=== PATIENT | female | born 1995 | race Caucasian/White ===

== ENCOUNTER 2018-09-14 12:36 | Emergency (ER) | payer OTHER ==
[~2018-09-14] VITALS: Ht 165.1 cm; Wt 65.8 kg
[~2018-09-14 12:36] MED LIST: ACETAMINOPHEN325 M1; CIPROFLOXACIN500 M1 PO; CRANBERRY400 MG; NOHOMEMEDICATIONS; NORCO 5-325 TA1 EACH PO; ZOFRAN4 MG PO
[2018-09-14] MEDS ORDERED: BIRTH CONTROL (12:52)
[2018-09-14] MEDS ORDERED: ONDANSETRON HCL4 M2 PO (15:11)
[2018-09-14] MEDS ORDERED: NABUMETONE 750750 M1 PO (15:11)
[2018-09-14 15:26] VITALS: BP 93/51
== END 2018-09-14 15:27 | disposition home or self-care (01) ==
LOC: M.ERS 12:36
DX: S06.0X0A Concussion without loss of consciousness, initial encounter (principal); R11.0 Nausea; Z87.440 Personal history of urinary (tract) infections; Z88.1 Allergy status to other antibiotic agents; Z88.8 Allergy status to other drugs, medicaments and biological substances; W22.8XXA Striking against or struck by other objects, initial encounter; Y93.89 Activity, other specified; Y92.89 Other specified places as the place of occurrence of the external cause; Y99.8 Other external cause status

== ENCOUNTER 2019-05-17 03:39 | Inpatient (IN) | payer OTHER ==
[2019-05-17] VITALS (13 sets, daily range): BP systolic 103–141; BP diastolic 49–82
[~2019-05-17] VITALS: Ht 152.4 cm; Wt 64.0 kg
[~2019-05-17 03:39] MED LIST changes: +BIRTH CONTROL; +NABUMETONE 750750 M1 PO; +ONDANSETRON HCL4 M2 PO
[2019-05-17] MEDS ORDERED: METFORMIN HCL500 MG PO (03:52)
[2019-05-17 04:47] LABS: BE -8.9 mmol/L (-2 to +3); PCO2 27.8 mmHg (35.0-45.0); PO2 105.4 mmHg (75.0-100.0); pH 7.352 (7.340-7.450)
[2019-05-17 04:48] LABS: ABSOLUTE EOSINOPHILS 0.2 thou/uL (0.0-0.7); ABSOLUTE MONOCYTES 0.4 thou/uL (0.0-1.2); ABSOLUTE NEUTROPHILS 1.5 thou/uL (1.6-8.1); BASOPHILS 0.6 %; EOSINOPHILS 5.9 %; HEMATOCRIT 38.4 % (37.0-47.0); HEMOGLOBIN 12.8 gm/dL (12.0-15.0); MCHC 33.4 g/dL (28.0-37.0); MCV 80.7 fL (80.0-100.0); MONOCYTES 8.8 %; NUCLEATED RBCS 0 /100WBC; PLATELET COUNT* 204 thou/uL (150-400); POLYS 35.7 %; RBC 4.76 mil/uL (4.20-5.00); RDW-CV 12.9 % (10.5-14.5); WBC 4.1 thou/uL (4.0-11.0)
[2019-05-17 05:01] LABS: CALCIUM 8.5 mg/dL (8.5-10.1); CREATININE 0.7 mg/dL (0.6-1.3); POTASSIUM 3.5 mmol/L (3.5-5.1)
[2019-05-17 05:06] LABS: ALBUMIN 3.4 g/dL (3.4-5.0); MAGNESIUM 1.5 mg/dL (1.8-2.4); TOTAL BILIRUBIN 0.4 mg/dL (<0.1-1.0); TOTAL PROTEIN 6.6 g/dL (6.4-8.2)
[2019-05-17 05:08] LABS: URINE BILIRUBIN NEGATIVE (Negative); URINE BLOOD 1+ (Negative); URINE CLARITY CLEAR; URINE COLOR YELLOW; URINE GLUCOSE-RANDOM NEGATIVE (Negative); URINE LEUKOCYTES-REFLEX NEGATIVE (Negative); URINE NITRITE-REFLEX NEGATIVE (Negative); URINE PROTEIN NEGATIVE (Negative); URINE SPECIFIC GRAVITY >= 1.030 (1.005-1.030); URINE UROBILINOGEN 0.2 E.U./dl (0.2-1.0)
[2019-05-17 05:09] LABS: URINE KETONES 3+ (Negative)
[2019-05-17 05:11] LABS: ACETEST (KETONE CONFIRMATORY) Large (Negative)
[2019-05-17 05:54] LABS: CASTS None Seen /LPF (None Seen); SQUAMOUS 4-10 Moderate /LPF (0-3)
[2019-05-17 05:55] LABS: BACTERIA-REFLEX 1-9 Few /HPF (None Seen); CRYSTALS None Seen /LPF (None Seen); URINE RBC 0-2 Rare /HPF (0-2); URINE WBC-REFLEX 0-5 Rare /HPF (0-5)
[2019-05-17 10:12] LABS: CALCIUM 7.4 mg/dL (8.5-10.1); CREATININE 0.6 mg/dL (0.6-1.3); POTASSIUM 4.2 mmol/L (3.5-5.1)
--- NOTE | 2019-05-17 12:20 | NUR ---
0910 PATIENT ADMITTED PER WHEELCHAIR FROM ER ON INSULIN DRIP. ASSISTED TO BSC AND THEN TO BED. SEE ADMISSION HISTORY AND ASSESSMENT.PT IS ON DKA PROTOCOL
[2019-05-17 14:18] LABS: ALBUMIN 2.8 g/dL (3.4-5.0); CALCIUM 7.3 mg/dL (8.5-10.1); CREATININE 0.6 mg/dL (0.6-1.3); MAGNESIUM 1.9 mg/dL (1.8-2.4); PHOSPHORUS* 2.1 mg/dL (2.5-4.9); POTASSIUM 3.9 mmol/L (3.5-5.1)
--- NOTE | 2019-05-17 14:31 | NUR ---
message sent to Dr. Ramsey regarding current labs and insulin drip. patient has been seen by nephrology
--- NOTE | 2019-05-17 16:14 | NUR ---
1600 INSULIN DRIP OFF ORDERED.
--- NOTE | 2019-05-17 18:12 | NUR ---
PATIENT PROGRESSING TOWARDS GOALS. ADMITTED WITH DKA WHICH HAS RESOLVED. PATIENT IS NEWLY DIAGNOSED DIABETIC BUT HAS HAD NO PRIOR INSTRUCTION.TEARY AT TIMES OVER THE OVERWHELMING INFORMATION. MOTHER WANTS PATIENT TO SEE DIABETIC DOCTOR. PATIENT HAS APPOINTMENT WITH DR BERRY THIS WEEK. APPETITE IS GOOD. VSS.
[2019-05-17 18:25] LABS: CALCIUM 7.9 mg/dL (8.5-10.1); CREATININE 0.7 mg/dL (0.6-1.3); MAGNESIUM 1.9 mg/dL (1.8-2.4); PHOSPHORUS* 2.6 mg/dL (2.5-4.9); POTASSIUM 3.9 mmol/L (3.5-5.1)
[2019-05-17 22:33] LABS: ALBUMIN 2.9 g/dL (3.4-5.0); CALCIUM 7.7 mg/dL (8.5-10.1); CREATININE 0.7 mg/dL (0.6-1.3); MAGNESIUM 1.6 mg/dL (1.8-2.4); PHOSPHORUS* 2.4 mg/dL (2.5-4.9); POTASSIUM 3.3 mmol/L (3.5-5.1)
[2019-05-18] VITALS: BP 115/59
[2019-05-18 02:05] LABS: GLYCOHEMOGLOBIN (HGB A1C) 12.3 % (4.8-5.6)
[2019-05-18 03:42] LABS: HEMATOCRIT 33.8 % (37.0-47.0); HEMOGLOBIN 11.5 gm/dL (12.0-15.0); MCH 27.2 pg (26.0-34.0); MCHC 33.9 g/dL (28.0-37.0); MCV 80.4 fL (80.0-100.0); MPV 7.9 fl. (7.2-11.1); RBC 4.21 mil/uL (4.20-5.00); RDW-CV 13.1 % (10.5-14.5); WBC 4.2 thou/uL (4.0-11.0)
[2019-05-18 04:00] VITALS: BP 106/66
[2019-05-18 04:02] LABS: ALBUMIN 2.8 g/dL (3.4-5.0); CALCIUM 7.7 mg/dL (8.5-10.1); CREATININE 0.6 mg/dL (0.6-1.3); MAGNESIUM 1.7 mg/dL (1.8-2.4); TOTAL BILIRUBIN 0.4 mg/dL (<0.1-1.0); TOTAL PROTEIN 5.5 g/dL (6.4-8.2)
[2019-05-18 04:04] LABS: POTASSIUM 4.4 mmol/L (3.5-5.1)
--- NOTE | 2019-05-18 05:06 | NUR ---
REPORT TO BLADE DELGADO FOR CONTINUED CARE. VITALS STABLE, PATIENT TO ROOM 224 VIA WHEELCHAIR. UPDATE GIVEN TO MOTHER. NO CONCERNS/QUESTIONS AT THIS TIME.
[2019-05-18 05:30] VITALS: BP 117/69
[2019-05-18 07:00] VITALS: BP 106/68
--- NOTE | 2019-05-18 07:33 | NUR ---
REPORT RECEIVED FROM HARMONIC ANALYST. PT TRANSPORTED TO TELE ROOM 224 @ 6143. ORIENTED TO ROOM/UNIT. PT A+OX4. UP WITH STEADY GAIT. VSS. REPLACEMENT DOSE OF MAG GIVEN. NO OTHER CONCERNS OR DISCOMFORT NOTED. CALL LIGHT IN REACH.
--- NOTE | 2019-05-18 10:13 | NUR ---
INITAL ASSESSMENT COMPLETED CHARTED. VSS. TRACING SR ON MONITOR. PT UP ADLIB WITH STEADY GAIT. PT EDUCATED ON GIVING INSULIN, VOICES UNDERSTANDING. PT DENIES ANY FURTHER NEEDS AT THIS TIME. HOURLY ROUNDING FOR PT SAFETY. CLWR.
[2019-05-18 10:52] LABS: CALCIUM 8.3 mg/dL (8.5-10.1); CREATININE 0.6 mg/dL (0.6-1.3); POTASSIUM 4.1 mmol/L (3.5-5.1)
[2019-05-18] MEDS ORDERED: NOVOLOG FL100 UNIT/M SUBQ (12:01)
[2019-05-18] MEDS ORDERED: LANTUS100 UNIT/M SUBQ (12:02)
[2019-05-18 12:08] VITALS: BP 106/68
[2019-05-18 12:39] VITALS: BP 109/75
--- NOTE | 2019-05-18 12:45 | NUR ---
PT GIVEN DIABETES EDUCATION HANDOUTS WELL ONE TO ONE EDUCATION, PT VERBALIZES UNDERSTANDING. PT WAS INSTRUCTED HOW TO GIVE INSULIN INJECTIONS TO SELF, PT WAS ABLE TO RETURN DEMONSTRATION. PT WILL DISCHARGE AFTER LUNCH.
--- NOTE | 2019-05-19 10:29 | CON ---
[address] [address] CONSULTATION Name: MONISHA ARDON Room: [address]#: [id number] Admission: 05/17/19 Attend Phys: Rubina Ramsey MD Discharge: 05/18/19 Date of : 89 Report #: [id number] THIS REPORT FOR: //name// CC: [facility] physician/PCP Rubina Ramsey REQUESTING PHYSICIAN: Rubina Ramsey MD REASON FOR CONSULTATION: DKA. HISTORY OF PRESENT ILLNESS: A 23-year-old female admitted with elevated blood sugars. She was recently diagnosed with diabetes and has an appointment with Endocrinology next week. She has been having some nausea and vomiting and thus came into the Emergency Department for further evaluation. She was diagnosed with diabetic ketoacidosis, started on IV fluids and insulin and admitted to the ICU. Her renal function has been normal. She is feeling better now, has no complaints. REVIEW OF SYSTEMS: Constitutional, psych, heme, eyes, ENT, respiratory, cardiac, GI, , endocrine, all negative except as documented above. PAST MEDICAL HISTORY: Recent diagnosis of diabetes. MEDICATIONS: Reviewed. SOCIAL HISTORY: No drug use. FAMILY HISTORY: Not pertinent 23-year-old female. PHYSICAL EXAMINATION: VITAL SIGNS: Blood pressure 110/69, pulse 80, respirations 16 and temperature 36.7. GENERAL: No acute distress. EYES: Open. EARS: Externally normal. NECK: Supple. CARDIOVASCULAR: Regular rate. LUNGS: No crackles. ABDOMEN: Soft, nontender. MUSCULOSKELETAL: Nontender. PSYCHIATRIC: Awake and alert. LABORATORY DATA: Sodium 138, potassium 4.2, chloride 106, bicarbonate 17, BUN 11, creatinine 0.6, glucose now 185, calcium 7.4. UA noted. White cell count 4.1, hemoglobin 12.8, platelets 204. ASSESSMENT AND PLAN: Diabetic ketoacidosis with an anion gap of 15, carbon [facility] [address] [place] [address] CONSULTATION Name: JARETH ARDONSary Sanchez Room: [address]#: [id number] Admission: 05/17/19 Attend Phys: Rubina Ramsey MD Discharge: 05/18/19 Date of : 89 Report #: [id number] dioxide of 17, creatinine of 0.6. ABG showed a pH of 7.35, 28 and 15. She is on IV fluids and insulin with electrolyte replacement ordered as needed. No further recommendations from my standpoint, agree with present management. I will sign off. Please call with any questions. Thank you for requesting my opinion in the care and management of this patient. <ELECTRONICALLY SIGNED> By: Cyndie Us MD 05/19/19 1029 [id number] Alex Us MD /nt
== END 2019-05-18 13:00 | disposition home or self-care (01) | DRG 639 ==
LOC: M.ERS 03:39 → M.2W 06:56 → M.TBA-ER 06:56 → M.ICU 09:28 → M.2W 05-18 05:24
PROVIDERS: Personal Emergency Response Attendant; ADMIT Internal Medicine
DX: E10.10 Type 1 diabetes mellitus with ketoacidosis without coma (principal); Z87.440 Personal history of urinary (tract) infections; Z79.899 Other long term (current) drug therapy; Z79.84 Long term (current) use of oral hypoglycemic drugs; Z88.8 Allergy status to other drugs, medicaments and biological substances; Z88.1 Allergy status to other antibiotic agents